=== PATIENT | male | born 1995 | race Caucasian/White ===

== ENCOUNTER 2021-05-04 19:36 | Outpatient (CLI) | payer OTHER | END 2021-05-04 19:37 | disposition critical access hospital (66) | LOC: EMS 19:36 | DX: R41.82 Altered mental status, unspecified (principal); R45.89 Other symptoms and signs involving emotional state | CPT/HCPCS: A0425; A0427 ==

== ENCOUNTER 2021-05-04 20:00 | Observation (INO) | payer OTHER ==
[2021-05-04] MEDS ORDERED: KETAMINE 500 MG/10 ML VIAL ONE (20:07)
[2021-05-04] MEDS ORDERED: ETOMIDATE 40 MG/20 ML VIAL IVP ONE (20:14)
[2021-05-04] MEDS ORDERED: MIDAZOLAM 2 MG/2 ML VIAL ONE (20:14)
[2021-05-04] MEDS ORDERED: ROCURONIUM 50 MG/5 ML VIAL ONE (20:15)
[2021-05-04] MEDS ORDERED: PROPOFOL 500 MG/50 ML 500 MG/50 ML VIAL ONE (20:15)
[2021-05-04] MEDS ORDERED: PROPOFOL 200 MG/20 ML VIAL IVP ONE (20:15)
[2021-05-04] MEDS ORDERED: SUCCINYLCHOLINE 200 MG/10 ML VIAL ONE (20:16)
[2021-05-04] MEDS ORDERED: SODIUM CHLORIDE 0.9% 1,000 ML IV STA (20:26)
[2021-05-04] MEDS ORDERED: ROCURONIUM 50 MG/5 ML VIAL IVP STA (20:28)
[2021-05-04] MEDS ORDERED: PROPOFOL 500 MG/50 ML 500 MG/50 ML VIAL IV STA (20:30)
[2021-05-04] MEDS ORDERED: ETOMIDATE 40 MG/20 ML VIAL IVP STA (20:30)
--- NOTE | 2021-05-04 20:33 | ED Physician Documentation ---
History of Present Illness - Stated complaint Stated Complaint: FALL/ALOC - History obtained from History obtained from: EMS - Additonal information Additional information: 25-year-old man with history of polysubstance abuse presents after his mother called EMS. She reports that he was drinking alcohol and apparently fell out of a chair onto the floor and was unconscious when she found him. EMS reported he was confused and intermittently combative en route. 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 further history limited by patient acuity/confusion and agitation. Review of Systems Unable to obtain: Confused, Intoxicated, Uncooperative PD PAST MEDICAL HISTORY - Allergies Allergies/Adverse Reactions: Allergies Allergy/AdvReac Type Severity Reaction Status Date / Time Unable to Assess Allergy Verified 05/04/21 20:55 PD ED PE NORMAL - Vitals Vital signs reviewed: Yes - General General: Well developed/nourished, Other (agitated, combative) - HEENT HEENT: Atraumatic, PERRL, EOMI, Moist mucous membranes, Pharynx benign - Neck Neck: No bony TTP - Cardiac Cardiac: Other (tachycardic rate, regular rhythm) - Respiratory Respiratory: No respiratory distress, Clear bilaterally - Abdomen Abdomen: Non tender, Non distended - Back Back: No spinal TTP - Derm Derm: Normal color, Warm and dry - Extremities Extremities: No deformity - Neuro Eye Opening: To Voice Motor: Localizes to Pain Verbal: Confused GCS Score: 12 - Psych Psych: Other (agitated, shouting, "fuck you" when asked his name. appears intoxicated) Results - Vitals Vitals: Vital Signs - 24 hr 05/04/21 05/04/21 20:00 22:16 Temperature 36.4 C L Heart Rate 64 66 Respiratory 20 18 Rate Blood Pressure 137/104 H 105/70 O2 Saturation 100 100 Oxygen O2 Source Mechanical ventilator - Labs Labs: Laboratory Tests 05/04/21 05/04/21 05/04/21 20:29 20:29 20:29 WBC 8.6 RBC 5.16 Hgb 16.8 Hct 48.8 MCV 94.6 H MCH 32.6 H MCHC 34.4 RDW 12.1 Plt Count 190 MPV 9.8 Neut # (Auto) 3.6 Lymph # (Auto) 3.7 H Wolfe # (Auto) 0.8 Eos # (Auto) 0.2 Baso # (Auto) 0.1 Absolute Nucleated RBC 0.00 Nucleated RBC % 0.0 PT 11.7 INR 1.1 APTT 27.7 Sodium 142 Potassium 3.6 Chloride 106 Carbon Dioxide 26 Anion Gap 10.0 BUN 11 Creatinine 0.9 Estimated GFR (MDRD) 104 Glucose 107 H Calcium 9.4 Total Bilirubin 1.0 AST 55 H ALT 87 H Alkaline Phosphatase 61 Total Protein 8.6 H Albumin 5.1 Globulin 3.5 Albumin/Globulin Ratio 1.5 Lipase 53 H Urine Color Urine Clarity Urine pH Ur Specific Hollenberg Urine Protein Urine Glucose (UA) Urine Ketones Urine Occult Blood Urine Nitrite Urine Bilirubin Urine Urobilinogen Ur Leukocyte Esterase Ur Microscopic Review Urine Culture Comments Nasal Adenovirus (PCR) Nasal B. parapertussis DNA (PCR) Nasal Coronavir 229E PCR Nasal Coronavir HKU1 PCR Nasal Coronavir NL63 PCR Nasal Coronavir OC43 PCR Nasal Enterovir/Rhinovir PCR Nasal Influenza B PCR Nasal Influenza A PCR Nasal Parainfluen 1 PCR Nasal Parainfluen 2 PCR Nasal Parainfluen 3 PCR Nasal Parainfluen 4 PCR Nasal RSV (PCR) Nasal B.pertussis DNA PCR Nasal C.pneumoniae (PCR) Black Human Metapneumo PCR Nasal M.pneumoniae (PCR) Nasal SARS-CoV-2 (PCR) Ethyl Alcohol 319.8 05/04/21 05/04/21 20:45 22:00 WBC RBC Hgb Hct MCV MCH MCHC RDW Plt Count MPV Neut # (Auto) Lymph # (Auto) Wolfe # (Auto) Eos # (Auto) Baso # (Auto) Absolute Nucleated RBC Nucleated RBC % PT INR APTT Sodium Potassium Chloride Carbon Dioxide Anion Gap BUN Creatinine Estimated GFR (MDRD) Glucose Calcium Total Bilirubin AST ALT Alkaline Phosphatase Total Protein Albumin Globulin Albumin/Globulin Ratio Lipase Urine Color COLORLESS Urine Clarity CLEAR Urine pH 6.0 Ur Specific Hollenberg <=1.005 Urine Protein NEGATIVE Urine Glucose (UA) NEGATIVE Urine Ketones NEGATIVE Urine Occult Blood NEGATIVE Urine Nitrite NEGATIVE Urine Bilirubin NEGATIVE Urine Urobilinogen 0.2 (NORMAL) Ur Leukocyte Esterase NEGATIVE Ur Microscopic Review NOT INDICATED Urine Culture Comments NOT INDICATED Nasal Adenovirus (PCR) NOT DETECTED Nasal B. parapertussis DNA (PCR) NOT DETECTED Nasal Coronavir 229E PCR NOT DETECTED Nasal Coronavir HKU1 PCR NOT DETECTED Nasal Coronavir NL63 PCR NOT DETECTED Nasal Coronavir OC43 PCR NOT DETECTED Nasal Enterovir/Rhinovir PCR NOT DETECTED Nasal Influenza B PCR NOT DETECTED Nasal Influenza A PCR NOT DETECTED Nasal Parainfluen 1 PCR NOT DETECTED Nasal Parainfluen 2 PCR NOT DETECTED Nasal Parainfluen 3 PCR NOT DETECTED Nasal Parainfluen 4 PCR NOT DETECTED Nasal RSV (PCR) NOT DETECTED Nasal B.pertussis DNA PCR NOT DETECTED Nasal C.pneumoniae (PCR) NOT DETECTED Black Human Metapneumo PCR NOT DETECTED Nasal M.pneumoniae (PCR) NOT DETECTED Nasal SARS-CoV-2 (PCR) NOT DETECTED Ethyl Alcohol Procedures - Intubation Provider: Emergency physician Medications: Etomidate, Rocuronium Blade: Glidescope Tube: Size-enter number (8), Cuffed, Marked at lips-enter cm (24) Route: Oral Confirmation: Direct visualization, Bilateral breath sounds, No abdominal breath sound, End tidal CO2, Pulse ox, Chest xray Complications: No compications PD MEDICAL DECISION MAKING - ED course ED course: 25-year-old man presented as modified trauma after drinking alcohol this evening, falling onto his head (unwitnessed) with apparent LOC. patient agitated and combative on arrival, intubated for safety and in order to obtain traumatic workup. Hospitalist Dr. Ricardo will admit ICU pending workup. CTs without acute traumatic injury. Departure - Departure Disposition: 66 [facility] DC/Xfer Clinical Impression: Alcohol abuse, Head injury, Fall Condition: Stable
[2021-05-04 20:35] LABS: BASOPHILS # (AUTO) 0.1 10^3/uL (0.0-0.1); BASOPHILS % (AUTO) 1.3 %; EOSINOPHILS # (AUTO) 0.2 10^3/uL (0.0-0.7); EOSINOPHILS % (AUTO) 2.8 %; HCT - HEMATOCRIT 48.8 % (42.0-52.0); HGB - HEMOGLOBIN 16.8 g/dL (14.0-18.0); LYMPHOCYTES # (AUTO) 3.7 10^3/uL (1.5-3.5); LYMPHOCYTES % (AUTO) 42.9 %; MEAN CORPUSCULAR HEMOGLOBIN 32.6 pg (27.0-31.0); MEAN CORPUSCULAR HGB CONC 34.4 g/dL (32.0-36.0); MEAN CORPUSCULAR VOLUME 94.6 fL (80.0-94.0); MEAN PLATELET VOLUME 9.8 fL (7.4-11.4); MONOCYTES # (AUTO) 0.8 10^3/uL (0.0-1.0); MONOCYTES % (AUTO) 9.4 %; NEUTROPHILS # (AUTO) 3.6 10^3/uL (1.5-6.6); NEUTROPHILS % (AUTO) 41.7 %; PLT - PLATELET COUNT 190 10^3/uL (130-450); RED BLOOD COUNT 5.16 10^6/uL (4.70-6.10); RED CELL DISTRIBUTION WIDTH 12.1 % (12.0-15.0); WHITE BLOOD COUNT 8.6 x10^3/uL (4.8-10.8)
[2021-05-04] MEDS ORDERED: MIDAZOLAM 2 MG/2 ML VIAL IVP STA (20:37)
[2021-05-04 20:42] LABS: INR 1.1 (0.8-1.2); PT - PROTHROMBIN TIME 11.7 secs (9.9-12.6)
[2021-05-04] MEDS ORDERED: MIDAZOLAM 10 MG/2 ML VIAL ONE (20:42)
[2021-05-04 20:49] LABS: PARTIAL THROMBOPLASTIN TIME 27.7 secs (24.9-33.3)
[2021-05-04 20:53] LABS: ALBUMIN 5.1 g/dL (3.2-5.5); ALBUMIN/GLOBULIN RATIO 1.5 (1.0-2.2); CALCIUM 9.4 mg/dL (8.5-10.3); CREATININE 0.9 mg/dL (0.6-1.2); ETOH - ETHANOL 319.8 mg/dL; POTASSIUM 3.6 mmol/L (3.5-5.0); TOTAL PROTEIN 8.6 g/dL (6.7-8.2)
[2021-05-04] MEDS ORDERED: IOVERSOL 320 100 ML VIAL IVP ONE ×2 (20:56→23:32)
[2021-05-04] MEDS ORDERED: PROPOFOL 200 MG/20 ML VIAL IVP STA (21:03)
--- NOTE | 2021-05-04 21:06 | XRAY Report ---
PROCEDURE: Chest for Line Placement INDICATIONS: ET NG tubes place, trauma TECHNIQUE: One view of the chest was acquired. COMPARISON: None. FINDINGS: Surgical changes and devices: There is an endotracheal tube with the tip approximately 5.7 cm on the laya. A nasogastric tube is present extending to the stomach with the tip not included on the curre nt study. Lungs and pleura: The lung apices are incompletely included on the current study. No definite pleural effusions or pneumothorax identified on the current supine study. There is pulmonary vascular promin ence likely due to vascular crowding. No definite pulmonary contusions or pneumothorax. Mediastinum: Mediastinal contours are slightly widened likely due to low lung volumes and portable s upine technique. Heart size is normal. Bones and chest wall: No displaced fracture identified. Overlying soft tissues appear unremarkable. IMPRESSION: 1. Endotracheal and nasogastric tubes as described. 2. No definite acute traumatic abnormality. Reviewed by: Cuba Price MD on 05/04/2021 9:05 PM PDT Approved by: Cuba Price MD on 05/04/2021 9:05 PM PDT Station ID: [id number]
[2021-05-04 21:41] LABS: B. PARAPERTUSSIS- RESP PCR PAN NOT DETECTED; B. PERTUSSIS- RESP PCR PANEL NOT DETECTED; C. PNEUMONIAE- RESP PCR PANEL NOT DETECTED; CORONAVIRUS 229E-RESP PCR NOT DETECTED; CORONAVIRUS HKU1-RESP PCR NOT DETECTED; CORONAVIRUS NL63-RESP PCR NOT DETECTED; CORONAVIRUS OC43-RESP PCR NOT DETECTED; HUMAN METAPNEUMOVIRUS NOT DETECTED; INFLUENZA A- RESP PCR PANEL NOT DETECTED; INFLUENZA B - RESP PCR PANEL NOT DETECTED; M. PNEUMONIAE- RESP PCR PANEL NOT DETECTED; PARAINFLUENZA VIRUS 1 NOT DETECTED; PARAINFLUENZA VIRUS 2 NOT DETECTED; PARAINFLUENZA VIRUS 3 NOT DETECTED; PARAINFLUENZA VIRUS 4 NOT DETECTED; RHINOVIRUS/ENTEROVIRUS NOT DETECTED; RSV- RESP PCR PANEL NOT DETECTED; SARS-CoV-2 -RESP PCR PANEL NOT DETECTED
--- NOTE | 2021-05-04 21:59 | CT Report ---
PROCEDURE: HEAD WO INDICATIONS: Head trauma, mod-severe TECHNIQUE: Noncontrast 4.5 mm thick angled axial sections acquired from the foramen magnum to the vertex. For r adiation dose reduction, the following was used: automated exposure control, adjustment of mA and/or kV according to patient size. COMPARISON: None. FINDINGS: Image quality: Evaluation limited by suboptimal head positioning as well as motion artifact. CSF spaces: Basal cisterns are patent. No extra-axial fluid collections. Ventricles are normal in size and shape. Brain: No definite intracranial hemorrhage, mass, or mass effect. Gross-white matter interface is nor mal. Skull and face: There is right frontoparietal scalp soft tissue swelling. Calvarium and visualized fa cial bones are intact, without suspicious lesions. Sinuses: Visualized sinuses demonstrate a sinus retention cyst or mucosal polyp within the inferior right maxillary sinus. There is mild mucosal thickening within the ethmoid sinuses. Nasogastric tube and endotracheal tubes are partially visualized. IMPRESSION: 1. Limited study demonstrates no definite acute intracranial abnormality. Reviewed by: Cuba Price MD on 05/04/2021 9:57 PM PDT Approved by: Cuba Price MD on 05/04/2021 9:57 PM PDT Station ID: [id number]
--- NOTE | 2021-05-04 22:01 | CT Report ---
PROCEDURE: CERVICAL SPINE WO INDICATIONS: Neck trauma, midline tenderness TECHNIQUE: Noncontrast 3 mm thick sections acquired from the skull base to the T4 level. Sagittal and coronal r eformats were then constructed. For radiation dose reduction, the following was used: automated exp osure control, adjustment of mA and/or kV according to patient size. COMPARISON: None. FINDINGS: Image quality: There is mild motion artifact. Bones: No fractures or subluxation. There is straightening of the cervical lordosis. Visualized sup erior ribs are intact. Soft tissues: Prevertebral soft tissues are normal in thickness. No paravertebral hematomas. No ap ical pneumothoraces. There are linear opacities within the visualized lungs suggestive of atelectasis but completely evaluated on the current study. There are partially visualized endotracheal and nasog astric tubes. Endotracheal tube tip is approximately 4.5 cm from the laya. IMPRESSION: 1. No fracture or subluxation. Reviewed by: Cuba Price MD on 05/04/2021 10:00 PM PDT Approved by: Cuba Price MD on 05/04/2021 10:00 PM PDT Station ID: [id number]
--- NOTE | 2021-05-04 22:07 | CT Report ---
PROCEDURE: CHEST W INDICATIONS: Chest trauma, blunt, low energy CONTRAST: IV CONTRAST: Optiray 320 ml: 100 PO CONTRAST: *NO PO CONTRAST TECHNIQUE: After the administration of intravenous contrast, images were acquired from the pulmonary apices to t he posterior costophrenic angles. Multiplanar MIP reformats were acquired. For radiation dose reduc tion, the following was used: automated exposure control, adjustment of mA and/or kV according to pa tient size. COMPARISON: None. FINDINGS: Image quality: Excellent. Lungs and pleura: There are linear bilateral perihilar opacities in the upper lobes, right greater th an left, compatible with atelectasis. Mild dependent atelectasis is also demonstrated bilaterally. No definite pulmonary contusions or lacerations. There is an endotracheal tube present with the tip sahara roximately 5 cm from the laya. The trachea and central airways appear patent. No pleural effusions or pneumothorax. Mediastinum: Heart size is normal. No pericardial effusion. No mediastinal hematomas. No mediastin al or hilar adenopathy by size criteria. Thoracic aorta and central pulmonary arteries are normal in size. Esophagus is normal in caliber. No hiatal hernia. Bones and chest wall: No acute fractures identified. No suspicious bony lesions. No vertebral body compression fractures. No axillary or supraclavicular adenopathy by size criteria. The visualized th yroid demonstrates no discrete nodules. Abdomen: Visualized upper abdomen demonstrates a nasogastric tube extending to the stomach. IMPRESSION: 1. Bilateral linear perihilar opacities likely represent atelectasis, right greater than left. 2. No definite acute traumatic abnormality in the thorax. Reviewed by: Cuba Price MD on 05/04/2021 10:06 PM PDT Approved by: Cuba Price MD on 05/04/2021 10:06 PM PDT Station ID: [id number]
[2021-05-04 22:09] LABS: MUDS CUTOFF CONCENTRATIONS CUTOFF CONC BELOW:
[2021-05-04 22:12] LABS: BILIRUBIN,URINE NEGATIVE (NEGATIVE); GLUCOSE, URINE (UA) NEGATIVE (NEGATIVE); KETONES,URINE (UA) NEGATIVE (NEGATIVE); LEUKOCYTE ESTERASE, URINE NEGATIVE (NEGATIVE); NITRITE,URINE NEGATIVE (NEGATIVE); OCCULT BLOOD,URINE NEGATIVE (NEGATIVE); PROTEIN,URINE NEGATIVE (NEGATIVE); UROBILINOGEN,URINE 0.2 (NORMAL) E.U./dL (NORMAL)
[2021-05-04 22:13] LABS: CLARITY,URINE CLEAR (CLEAR)
--- NOTE | 2021-05-04 22:13 | CT Report ---
PROCEDURE: Abdomen/Pelvis W INDICATIONS: Abdominal trauma, blunt CONTRAST: IV CONTRAST: Optiray 320 ml: 100 PO CONTRAST: *NO PO CONTRAST TECHNIQUE: After the administration of intravenous contrast, 5 mm thick sections acquired from the diaphragms to the symphysis. 5 mm thick coronal and sagittal reformats were acquired. For radiation dose reducti on, the following was used: automated exposure control, adjustment of mA and/or kV according to kaya ent size. COMPARISON: Concurrent CT of the chest. FINDINGS: Image quality: There is beam hardening artifact from patient's upper extremities. ABDOMEN: Lung bases: There is mild dependent atelectasis bilaterally. Heart size is normal. Solid organs: Evaluation of the liver demonstrates no evidence of hepatic lacerations. Gallbladder a ppears within normal limits without calcified gallstones. Biliary system is non dilated. The spleen is normal in size without evidence of splenic lacerations. Pancreas enhances normally without peripan creatic fat stranding or fluid collections. No adrenal nodules. Kidneys demonstrate no hydronephros is or perinephric fluid collections. Peritoneum and bowel: There is a nasogastric tube extending into the stomach. Bowel loops demonstrat e normal wall thickness and caliber. Appendix is normal in appearance. No free fluid or air. Nodes and vessels: No retroperitoneal or mesenteric adenopathy by size criteria. Aorta and inferior vena cava are normal in size. Miscellaneous: No ventral hernias. PELVIS: Genitourinary: Bladder wall thickness is normal. There is prominent distention of the urinary bladde r. Miscellaneous: No inguinal hernias or adenopathy. Bones: No acute fractures identified. No suspicious bony lesions. No vertebral body compression fra ctures. IMPRESSION: 1. No definite acute traumatic abnormality within the abdomen or pelvis. Reviewed by: Cuba Price MD on 05/04/2021 10:12 PM PDT Approved by: Cuba Price MD on 05/04/2021 10:12 PM PDT Station ID: [id number]
[2021-05-04 22:21] LABS: AMPHETAMINE SCREEN,URINE NEGATIVE (NEGATIVE); COCAINE SCREEN URINE NEGATIVE (NEGATIVE); METHAMPHETAMINES SCREEN, URINE NEGATIVE (NEGATIVE); OPIATE SCREEN, URINE NEGATIVE (NEGATIVE); THC CANNABINOID SCREEN, URINE POSITIVE (NEGATIVE)
[2021-05-04 22:22] LABS: BARBITURATE SCREEN,UR NEGATIVE (NEGATIVE); BENZODIAZEPINES SCREEN, URINE POSITIVE (NEGATIVE); METHADONE SCREEN, URINE NEGATIVE (NEGATIVE); OXYCODONE SCREEN, URINE NEGATIVE (NEGATIVE); PROPOXYPHENE SCREEN, URINE NEGATIVE (NEGATIVE); TRICYCLIC ANTIDEPRESSANT,URINE NEGATIVE (NEGATIVE)
[2021-05-04] MEDS ORDERED: ONDANSETRON 4 MG/2 ML VIAL IVP PRN (22:22)
[2021-05-04] MEDS ORDERED: MULTIVITAMIN 10 ML, THIAMINE INJ 100 MG, FOLIC ACID INJ 1 MG in SODIUM CHLORIDE 0.9% 1,... IV SCH (22:24)
[2021-05-04] MEDS ORDERED: MORPHINE 2 MG/ML CARPUJECT IVP PRN (22:25)
--- NOTE | 2021-05-04 22:28 | HISTORY & PHYSICAL EXAMINATION ---
Chief Complaint - Chief Complaint Chief Complaint: Unable to obtain due to patient being intubated. History of Present Illness - Admitted From Admitted From:: Home - History Obtained From Records Reviewed: Yes History obtained from: ER Physician, EMR Exam Limitations: Patient is intubated. - History of Present Illness HPI Comment/Other: This is a 25-year-old male with an unknown past medical history who presents today after having a fall from recliner at home. History is obtained from the emergency department physician and the EMR as the patient is intubated and unable to provide a history. Reportedly the patient fell at home today from the recliner and had a loss of consciousness. He was noted to be quite intoxicated and was reportedly not following commands. He was brought to the emergency department for further evaluation where he was agitated and aggressive. Given the reported history of loss of consciousness and trauma, imaging needed to be obtained and it was felt that he was a danger to himself and others and so he was intubated for safety reasons and to obtain an appropriate work-up. The labs in the emergency department showed his alcohol level is greater than 300. His LFTs were mildly elevated. His urine toxicology was positive for cannabinoids and benzodiazepines although he had received Versed prior to this being obtained. CT of the head and neck did not reveal any acute abnormalities. Given he is intubated, medicine was consulted for admission. History - Family & Social History Family History Comment/Other: Unable to obtain as he is intubated. Social History Notes: Unable to obtain as he is intubated. His urine drug screen is positive for cannabinoids. Meds/Allgy - Allergies Allergies/Adverse Reactions: Allergies Allergy/AdvReac Type Severity Reaction Status Date / Time Unable to Assess Allergy Verified 05/04/21 20:55 Review of Systems - All Other Systems All Other Systems: reports: Other (Unable to obtain as he is intubated.) Prior Level of Functionality: Independent with ADLs. Exam - Vital Signs Reviewed Vital Signs: Yes Vital Signs: Vital Signs x48h Temp Pulse Resp BP Pulse Ox 05/04/21 22:16 66 18 105/70 100 05/04/21 20:00 36.4 C L 64 20 137/104 H 100 - Physical Exam General Appearance: positive: No acute distress, Other (He is sedated.) Eyes Bilateral: positive: Other (Pupils constricted bilaterally.) ENT: positive: Other (ET tube in place.) Neck: positive: Nml inspection Respiratory: positive: No respiratory distress. negative: Wheezes, Rales Cardiovascular: positive: Tachycardia. negative: Irregularly irregular, Systolic murmur Abdomen: positive: Non-tender, No distention. negative: Tenderness Skin: positive: Warm, Dry Extremities: positive: No pedal edema Neurologic/Psychiatric: positive: Other (He is sedated and unable to follow commands.) Conclusion/Plan - Problem List (1) Alcohol intoxication Conclusion/Plan: It appears his agitation is related to his alcohol intoxication. His alcohol level is greater than 300. His urine drug screen was positive for cannabinoids. Imaging did not reveal any acute abnormalities. He remains intubated for airway protection at this time. We will start him on a banana bag and use for propofol and Versed as needed for sedation. Plan will be to extubate tomorrow morning. He can likely be discharged in the late morning or early afternoon. (2) On mechanically assisted ventilation Conclusion/Plan: He was intubated so we could safely obtain further work-up including imaging of the head and cervical spine. He remains intubated at this time. He has minimal ventilator requirements. The plan will be to keep him comfortable overnight and sedate him with propofol with Versed as needed. We will plan to extubate him tomorrow morning as he darion up. If he is agitated then we can consider Precedex. Vent management as per protocol. - Lab Results Lab results reviewed: Yes Fish Bones: 05/04/21 20:29 05/04/21 20:29 - Diagnostic Imaging Results Diagnostic Imaging Results: positive: Final report reviewed Core Measures - Anticipated LOS I expect patient to be DC'd or transferred within 96 hours.: Yes - Issues Hospital Issues and Management Plan: 25-year-old male who presents after a fall and reported history of loss of consciousness found to just be intoxicated. He was intubated for airway protection to obtain images in the emergency department. We will place him in observation with plan to extubate in the morning. - DVT/VTE - Prophylaxis VTE/DVT Device ordered at admit?: Yes VTE/DVT Prophylaxis med ordered at admit?: Yes
[2021-05-04 22:45] LABS: ABG PCO2 33 mmHg (34-45); ABG PH 7.43 (7.35-7.45)
[2021-05-04 22:46] LABS: ABG BASE EXCESS -2.1 mmol/L (-2.0-3.0); ABG HCO3 21.3 mmol/L (22.0-26.0); ABG OXYGEN SATURATION 99 % (94-98); ABG TCO2 22.3 MMOL/L (21.0-29.0); ALLEN TEST POSITIVE
[2021-05-04 22:47] LABS: ABG MODE OF VENTILATION ASSIST/CONTROL; ABG RESPIRATORY RATE 18 b/min
[2021-05-04] MEDS: MIDAZOLAM 2 MG/2 ML VIAL IVP PRN (23:30)
[2021-05-05] MEDS ORDERED: THIAMINE 100 MG/1 ML 2 ML MDV ONE (00:21)
[2021-05-05] MEDS ORDERED: SODIUM CHLORIDE 0.9% 1,000 ML IV ONE (00:21)
[2021-05-05] MEDS: SODIUM CHLORIDE FLUSH 0.9% 10 ML SYRINGE IVP PRN ×3 (00:28→04:57)
[2021-05-05] MEDS: SODIUM CHLORIDE FLUSH 0.9% 10 ML SYRINGE IVP SCH ×2 (00:28→08:42)
[2021-05-05] MEDS: PROPOFOL 500 MG/50 ML 500 MG/50 ML VIAL IV SCH ×3 (00:29→04:49)
[2021-05-05] MEDS: MIDAZOLAM 2 MG/2 ML VIAL IVP PRN ×2 (02:03→04:57)
[2021-05-05 05:00] LABS: BASOPHILS # (AUTO) 0.1 10^3/uL (0.0-0.1); BASOPHILS % (AUTO) 1.1 %; EOSINOPHILS # (AUTO) 0.2 10^3/uL (0.0-0.7); EOSINOPHILS % (AUTO) 2.3 %; HCT - HEMATOCRIT 42.6 % (42.0-52.0); HGB - HEMOGLOBIN 14.2 g/dL (14.0-18.0); LYMPHOCYTES # (AUTO) 2.7 10^3/uL (1.5-3.5); LYMPHOCYTES % (AUTO) 41.5 %; MEAN CORPUSCULAR HEMOGLOBIN 31.8 pg (27.0-31.0); MEAN CORPUSCULAR HGB CONC 33.3 g/dL (32.0-36.0); MEAN CORPUSCULAR VOLUME 95.5 fL (80.0-94.0); MONOCYTES # (AUTO) 0.8 10^3/uL (0.0-1.0); MONOCYTES % (AUTO) 12.1 %; NEUTROPHILS # (AUTO) 2.7 10^3/uL (1.5-6.6); NEUTROPHILS % (AUTO) 41.8 %; PLT - PLATELET COUNT 178 10^3/uL (130-450); RED BLOOD COUNT 4.46 10^6/uL (4.70-6.10); RED CELL DISTRIBUTION WIDTH 12.6 % (12.0-15.0); WHITE BLOOD COUNT 6.5 x10^3/uL (4.8-10.8)
[2021-05-05 05:11] LABS: ALBUMIN 3.8 g/dL (3.2-5.5); ALBUMIN/GLOBULIN RATIO 1.5 (1.0-2.2); BILIRUBIN,TOTAL 0.7 mg/dL (0.2-1.0); CALCIUM 8.1 mg/dL (8.5-10.3); CREATININE 0.8 mg/dL (0.6-1.2); PHOSPHORUS 3.3 mg/dL (2.5-4.6); POTASSIUM 3.7 mmol/L (3.5-5.0); TOTAL PROTEIN 6.4 g/dL (6.7-8.2)
[2021-05-05] MEDS ORDERED: PHENOL THROAT SPRAY 177 ML MM PRN (08:45)
[2021-05-05] MEDS ORDERED: BENZOCAINE/MENTHOL LOZENGE MM PRN (08:45)
[2021-05-05] MEDS ORDERED: ENOXAPARIN 40 MG/0.4 ML SYRINGE SUBQ SCH (09:00)
[2021-05-05] MEDS ORDERED: NICOTINE 14 MG PATCH TOP SCH (09:00)
[2021-05-05] MEDS ORDERED: FOLIC ACID 1 MG TABLET PO SCH (10:00)
[2021-05-05] MEDS ORDERED: THIAMINE 100 MG TABLET PO SCH (10:00)
--- NOTE | 2021-05-05 10:57 | Discharge Plan ---
Discharge Plan Problem Reviewed?: Yes Disposition: Home, Self Care Condition: Stable Diet: Regular Activity Restrictions: Activity as Tolerated Shower Restrictions: No Driving Restrictions: Yes (you cannot drive and drinkn) Health Concerns: You were brought into the hospital after binge drinking hard alcohol. You became intoxicated enough that you became unconscious and fell out of a chair. Your friends were concerned because you hit your head when he hit the floor. You were brought to the emergency room and in your intoxication you were very agitated, fighting the doctors and the nurses. As such to complete the work-up you were sedated, had a breathing tube put down your throat, and were worked up to make sure you did not have neck trauma or brain trauma. After being intubated overnight, you were able to gradually wake up, sober up, and we pulled the breathing tube out of your throat. You are now stable to go home. Plan of Treatment: You are already in an outpatient and says have alcohol abuse program. You plan to return to that. I am again asking to refrain from drinking any alcohol. Please start taking a daily multivitamin that has B12 and folate acid. If you do not have a primary care provider, please establish yourself with one. It would be important for down the road for continuity of care. We usually have patient see their regular doctor when they get out of the hospital. Care Goals: To remain off alcohol for the rest of your life Assessment: She states he will try and follow through No Smoking: If you smoke, Please STOP! Call for help.
--- NOTE | 2021-05-05 10:59 | PHARMACY PROGRESS NOTE ---
- Best Possible Medication History Admit Date and Time: 05/04/212221 Processed by: Pharmacy Medication History completed: Yes Patient Interview: Completed (PATIENT ABLE TO CONFIRM HOME MEDICATIONS. PATIENT ALSO REPORTS HE USES MARIJUANA MEDICINALLY FOR ANXIETY AND PAIN) As the person ultimately responsible for medication therapy, providers are able to order a medication from an existing home medication list in [facility] via the "Reconcile Routine" prior to Confirmation of that medication by senior support analyst. Such practice is discouraged except when the physician, in their clinical judgment, deems that a medical need exists for a medication without regard to previous use.
[2021-05-05 12:29] VITALS: BP 120/65
--- NOTE | 2021-05-05 15:34 | DISCHARGE SUMMARY ---
"Discharge Summary Admit Date: 05/04/21 Discharge Date: 05/05/21 Discharging Provider: Tita Prince MD Primary Care Provider: He doesn't have a PCP Code Status: Attempt Resuscitation Condition at Discharge: Stable Discharge Disposition: 01 Home, Self Care - DIAGNOSES Discharge Diagnoses with Status of Each Condition: 1. Acute metabolic encephalopathy due to #2. 2. Alcohol intoxication. 3. History of chronic alcohol abuse 4. On mechanically assisted ventilation 5. Tobacco abuse - HPI History of Present Illness: This is a 25-year-old male with an unknown past medical history who presents today after having a fall from recliner at home. History is obtained from the emergency department physician and the EMR as the patient is intubated and unable to provide a history. Reportedly the patient fell at home today from the recliner and had a loss of consciousness. He was noted to be quite intoxicated and was reportedly not following commands. He was brought to the emergency department for further evaluation where he was agitated and aggressive. Given the reported history of loss of consciousness and trauma, imaging needed to be obtained and it was felt that he was a danger to himself and others and so he was intubated for safety reasons and to obtain an appropriate work-up. The labs in the emergency department showed his alcohol level is greater than 300. His LFTs were mildly elevated. His urine toxicology was positive for cannabinoids and benzodiazepines although he had received Versed prior to this being obtained. CT of the head and neck did not reveal any acute abnormalities. Gi david he is intubated, medicine was consulted for admission. History - Family & Social History Family History Comment/Other: Unable to obtain as he is intubated. Social History Notes: Unable to obtain as he is intubated. His urine drug screen is positive for cannabinoids. - CONSULTS | PROCEDURES Procedures: 1. Chest x-ray with endotracheal and nasogastric tubes as described. No acute traumatic abnormality or acute cardiopulmonary abnormality. 2. Head CT without acute intracranial abnormality 3. Cervical spine CT without fracture or subluxation 4. Chest CT with bilateral linear perihilar opacities representing atelectasis, right greater than left. No definite acute traumatic abnormality in the thorax. 5. Abdomen pelvis CT with a distended bladder. But no acute definite acute traumatic abnormalities within the abdomen or pelvis. - HOSPITAL COURSE Hospital Course: The patient was able to be evaluated now that he was intubated and sedated. Work-up revealed that there was no trauma, no fractures. In the branch associate teller hours he was without sedation, extubated. From there he quickly went to eating breakfast, having a lines removed, having Renee removed. Was ambulating in the hallways and wanting to go home. He said he was part of an intensive outpatient rehab program where he goes to see the rehab person 3 times a week. Is in Alcoholics Anonymous. Has been sober for 3 weeks when he went on a drinking binge. He said he will reestablish himself with his support system to help him stop drinking. During his Stay he did request nicotine. He says he will try and stop smoking as well. - ALLERGIES Allergies/Adverse Reactions: Allergies Allergy/AdvReac Type Severity Reaction Status Date / Time Unable to Assess Allergy Verified 05/04/21 20:55 - MEDICATIONS Home Medications: Ambulatory Orders Medication Instructions Recorded Confirmed Atomoxetine HCl [Strattera] 25 mg PO DAILY 05/05/21 05/05/21 Gabapentin [Neurontin] 300 mg PO DAILY 05/05/21 05/05/21 Gabapentin [Neurontin] 600 mg PO QPM 05/05/21 05/05/21 - PHYSICAL EXAM AT DISCHARGE General Appearance: positive: No acute distress, Alert Eyes Bilateral: positive: PERRL, EOMI Neck: positive: No JVD. negative: Stiff neck Respiratory: positive: No respiratory distress. negative: Wheezes, Rales, Rhonchi Cardiovascular: positive: Regular rate & rhythm, No murmur Peripheral Pulses: positive: 1+ Abdomen: positive: Non-tender, No organomegaly, Nml bowel sounds, No distention Skin: positive: Warm, Dry Extremities: positive: Full ROM Neurologic/Psychiatric: positive: Oriented x3, CN's nml (2-12), Motor nml (He was without tremors. Without diaphoresis.) - LABS Result Diagrams: 05/05/21 04:10 05/05/21 04:10"
== END 2021-05-05 12:40 | disposition home or self-care (01) ==
LOC: ED 20:00 → EDBD 20:00 → ICU 22:22
PROVIDERS: ADMIT Internal Medicine; ATTEND Specialist
DX: G93.41 Metabolic encephalopathy (principal); F10.129 Alcohol abuse with intoxication, unspecified; Y90.8 Blood alcohol level of 240 mg/100 ml or more; Z78.1 Physical restraint status; R45.1 Restlessness and agitation; F17.200 Nicotine dependence, unspecified, uncomplicated; Z20.822 Contact with and (suspected) exposure to COVID-19
CPT/HCPCS: 0202U; 31500; 36415; 36600; 51702; 70450; 71045; 71260; 72125; 74177; 80053; 80306; 80320; 81003; 82803; 83690; 83735; 84100; 85025; 85610; 85730; 87150; 94002; 94003; 96365; 96366; 96368; 96372; 96375; 96376; 99285; A9270; G0378; J1650; J3411; Q9967; 81001; 87086